=== PATIENT | female | born 1950 | race Two or more races ===

== ENCOUNTER 2021-05-26 11:01 | Emergency (ER) | payer OTHER ==
[~2021-05-26] VITALS: Ht 160 cm; Wt 59.0 kg
[2021-05-26] MEDS ORDERED: NEURONTIN300 MG PO (11:06)
[2021-05-26] MEDS ORDERED: VALSARTAN160 MG PO (11:06)
== END 2021-05-26 12:38 | disposition home or self-care (01) ==
LOC: ER 11:01
DX: R21 Rash and other nonspecific skin eruption (principal); T78.40XA Allergy, unspecified, initial encounter; X58.XXXA Exposure to other specified factors, initial encounter